=== PATIENT | female | born 1960 | race Caucasian/White ===

== ENCOUNTER 2021-08-09 10:09 | Day surgery (SDC) | payer OTHER ==
[~2021-08-09 10:09] MED LIST: Lactated Ringers 1,000 ML IV SCH
[2021-08-09] MEDS ORDERED: Propofol 200 MG/20 ML SDV ONE ×3 (12:04→13:23)
[2021-08-09] MEDS ORDERED: fentaNYL 100 MCG/2 ML SDV ONE (12:04)
[2021-08-09 14:17] VITALS: BP 110/59; PULSE 66
== END 2021-08-09 14:58 | disposition home or self-care (01) ==
LOC: VM.SDS 10:09
PROVIDERS: ATTEND Family Medicine
DX: Z12.11 Encounter for screening for malignant neoplasm of colon (principal); K52.831 Collagenous colitis; Z80.0 Family history of malignant neoplasm of digestive organs; E55.9 Vitamin D deficiency, unspecified; F41.9 Anxiety disorder, unspecified; F32.A Depression, unspecified; Z86.010 Personal history of colon polyps; Z98.890 Other specified postprocedural states; I10 Essential (primary) hypertension; G47.00 Insomnia, unspecified; Z79.899 Other long term (current) drug therapy; Z88.8 Allergy status to other drugs, medicaments and biological substances; Z87.891 Personal history of nicotine dependence
CPT/HCPCS: 00811; J2704; J3010; J7120